=== PATIENT | female | born 2000 | race Caucasian/White ===

== ENCOUNTER → 2020-06-18 | Outpatient (CLI) | payer MEDICAID ==
--- NOTE | 2020-06-18 10:44 | US ---
EXAMINATION TYPE: US abdomen complete DATE OF EXAM: 06/18/2020 COMPARISON: NONE CLINICAL HISTORY: R10.11 RUQ Pain. RUQ pain. NPO. EXAM MEASUREMENTS: Liver Length: 15.1 cm Gallbladder Wall: 0.2 cm CBD: 0.3 cm Spleen: 11.5 cm Right Kidney: 10.5 x 4.8 x 4.2 cm Left Kidney: 9.6 x 4.5 x 4.6 cm Pancreas: wnl Liver: wnl Gallbladder: possible lesion adjacent to wall = 0.3 cm Evidence for sonographic Arroyo's sign: neg CBD: wnl Spleen: wnl Right Kidney: No hydronephrosis or masses seen Left Kidney: No hydronephrosis or masses seen Upper IVC: wnl Abd Aorta: No AAA visualized The visualized liver is homogenous. The intrahepatic portion of the IVC and visualized abdominal aor ta are within normal limits. There is no evidence of shadowing mobile cholelithiasis. Somewhat contr acted gallbladder. Common bile duct is unremarkable. The visualized portions of the pancreas are ashtyn ogenous. The spleen is unremarkable. Kidneys are symmetric and free of hydronephrosis. No renal le sions are seen. IMPRESSION: No acute findings are evident.
== END | disposition home or self-care (01) ==
LOC: RADUSWWP 07:10
PROVIDERS: ATTEND Internal Medicine
DX: R10.11 Right upper quadrant pain (principal)
CPT/HCPCS: 76700

== ENCOUNTER → 2021-04-24 | Outpatient (CLI) | payer MEDICAID ==
--- NOTE | 2021-04-24 08:09 | US ---
EXAMINATION TYPE: US pelvis complete transvag DATE OF EXAM: 04/24/2021 COMPARISON: NONE CLINICAL HISTORY: R10.2 pelvic pain. Intermittent right pelvic pain for 1 year. IUD placement TECHNIQUE: Transvaginal (TV) and Transabdominal (TA) . Transabdominal sonographic images of the pel vis were acquired. Transvaginal sonographic images were medically necessary to better assess the fol lowing anatomy: uterus and ovary Date of LMP: 1 year ago EXAM MEASUREMENTS: Uterus: 7.2 x 3.1 x 4.2 cm Endometrial Stripe: 0.4 cm Right Ovary: 3.4 x 1.3 x 2.5 cm Left Ovary: 3.2 x 1.6 x 2.0 cm 1. Uterus: Anteverted 2. Endometrium: IUD visualized 3. Right Ovary: follicles noted 4. Left Ovary: follicles noted 5. Bilateral Adnexa: appears wnl 6. Posterior cul-de-sac: wnl IMPRESSION: 1. IUD within the uterus. 2. Bilateral ovarian follicles.
== END | disposition home or self-care (01) ==
LOC: RADUSWWP 06:57
PROVIDERS: ATTEND Obstetrics & Gynecology
DX: N83.01 Follicular cyst of right ovary (principal); N83.02 Follicular cyst of left ovary; R10.2 Pelvic and perineal pain
CPT/HCPCS: 76830; 76856